=== PATIENT | female | born 1985 | race Caucasian/White ===

== ENCOUNTER → 2016-12-18 | Outpatient (REF) | payer OTHER | LOC: M SFHCLERA 10:32 | PROVIDERS: ATTEND Physician Assistant | DX: J32.9 Chronic sinusitis, unspecified (principal) ==

== ENCOUNTER → 2021-09-30 | Outpatient (CLI) | payer OTHER | LOC: M WHC 09:46 | PROVIDERS: ATTEND Specialist | DX: Z34.82 Encounter for supervision of other normal pregnancy, second trimester (principal) ==

== ENCOUNTER → 2021-11-14 | Outpatient (CLI) | payer OTHER | LOC: M WHC 11:49 | PROVIDERS: ATTEND Obstetrics & Gynecology | DX: Z36.2 Encounter for other antenatal screening follow-up (principal) ==

== ENCOUNTER → 2021-12-03 | Outpatient (CLI) | payer OTHER ==
[2021-12-03 14:12] LABS: HEMATOCRIT 33.7 % (36.0-47.0); HEMOGLOBIN 11.3 g/dl (12.0-15.5); MEAN CORPUSCULAR HEMOGLOBIN 31.1 pg (27.0-33.0); MEAN CORPUSCULAR HGB CONC 33.5 g/dl (32.0-36.5); MEAN CORPUSCULAR VOLUME 92.8 fl (80.0-96.0); PLATELET COUNT, AUTOMATED 260 10^3/uL (150-450); RED BLOOD COUNT 3.63 10^6/uL (4.00-5.40); WHITE BLOOD COUNT 11.7 10^3/uL (4.0-10.0)
[2021-12-03 14:41] LABS: ALBUMIN 2.7 GM/DL (3.2-5.2); ALT/SGPT 13 U/L (12-78); BILIRUBIN,TOTAL 0.2 MG/DL (0.2-1.0); BLOOD UREA NITROGEN 6 MG/DL (7-18); CALCIUM LEVEL 8.8 MG/DL (8.5-10.1); CARBON DIOXIDE LEVEL 24 MEQ/L (21-32); CHLORIDE LEVEL 106 MEQ/L (98-107); CREATININE FOR GFR 0.58 MG/DL (0.55-1.30); CREATININE,RANDOM URINE 59.8 MG/DL; GLOMERULAR FILTRATION RATE > 60.0 (>60); GLUCOSE CHALLENGE TEST 1 HOUR 106 MG/DL (LESS THAN 140); GLUCOSE, FASTING 106 MG/DL (70-100); POTASSIUM SERUM 3.4 MEQ/L (3.5-5.1); SODIUM LEVEL 138 MEQ/L (136-145); TOTAL PROTEIN 6.2 GM/DL (6.4-8.2); TOTAL PROTEIN,RANDOM URINE 12.3 MG/DL (0.0-12.0)
[2021-12-03 15:54] LABS: GC DNA AMPLIFICATION NEGATIVE (NEGATIVE)
== END ==
LOC: M PLALAB 08:37
PROVIDERS: ATTEND Obstetrics & Gynecology
DX: Z36.89 Encounter for other specified antenatal screening (principal); Z3A.24 24 weeks gestation of pregnancy

== ENCOUNTER → 2022-01-23 | Outpatient (REF) | payer OTHER | LOC: M PLALAB 08:19 | PROVIDERS: ATTEND Specialist | DX: Z34.83 Encounter for supervision of other normal pregnancy, third trimester (principal) ==

== ENCOUNTER → 2022-02-05 | Outpatient (CLI) | payer OTHER ==
[~2022-02-05] MED LIST: IRON27TA2 PO; PRENTAB53 PO
== END ==
LOC: M LABSMTC 09:52
PROVIDERS: ATTEND Anesthesiology
DX: Z01.818 Encounter for other preprocedural examination (principal); Z11.52 Encounter for screening for COVID-19

== ENCOUNTER 2022-02-10 07:11 | Inpatient (IN) | payer OTHER ==
[2022-02-10] VITALS (8 sets, daily range): BP systolic 105–137; BP diastolic 55–81
[~2022-02-10] VITALS: Ht 171.4 cm; Wt 91.1 kg
[2022-02-10] MEDS ORDERED: TUMS500C PO (07:48)
[2022-02-10] MEDS ORDERED: LACTATED RINGER'S 1000 ML IV STA (07:59)
[2022-02-10] MEDS ORDERED: BICITRA 30ML SOLN UDC PO ONE (08:00)
[2022-02-10] MEDS ORDERED: ceFAZolin SOD 2 GM in IV 1 EA IV ONE (08:00)
[2022-02-10 08:19] LABS: HEMATOCRIT 35.3 % (36.0-47.0); HEMOGLOBIN 12.5 g/dl (12.0-15.5); MEAN CORPUSCULAR HEMOGLOBIN 31.6 pg (27.0-33.0); MEAN CORPUSCULAR HGB CONC 35.4 g/dl (32.0-36.5); MEAN CORPUSCULAR VOLUME 89.4 fl (80.0-96.0); PLATELET COUNT, AUTOMATED 189 10^3/uL (150-450); RED BLOOD COUNT 3.95 10^6/uL (4.00-5.40); WHITE BLOOD COUNT 8.6 10^3/uL (4.0-10.0)
[2022-02-10] MEDS: LR 1,000 ML IV SCH ×2 (09:08→10:37)
[2022-02-10] MEDS ORDERED: HOME MED LIST COMPLETE! XX SCH (09:15)
[2022-02-10] MEDS ORDERED: PHENYLephrine 500MCG 5ML (100MCG/ML) SYRINGE As Ordered ONE (11:00)
[2022-02-10] MEDS ORDERED: ePHEDrine SULFATE 25 MG/5 ML(5MG/ML) SYRINGE As Ordered ONE (11:00)
[2022-02-10] MEDS ORDERED: ACETAMINOPHEN 1000MG 100ML IV BTL (OFIRMEV) (J0131 PER 10MG) As Ordered ONE (11:24)
[2022-02-10] MEDS ORDERED: MORPHINE PRES-FREE INJ 10 MG/10 ML VIAL As Ordered ONE (11:24)
[2022-02-10] MEDS ORDERED: METOCLOPRAMIDE INJ 10MG/2ML VIAL (J2765 PER 1) As Ordered ONE (11:24)
[2022-02-10] MEDS ORDERED: dexameTHASONE 4 MG/ML 1ML VIAL (J1100 PER 1MG) As Ordered ONE (11:24)
[2022-02-10] MEDS ORDERED: KETOROLAC 60MG 2ML VIAL As Ordered ONE (11:24)
[2022-02-10] MEDS ORDERED: ONDANSETRON 4MG 2ML VIAL As Ordered ONE (11:24)
[2022-02-10] MEDS ORDERED: OXYTOCIN 30 UNITS IN 0.9% NaCl 500ML IV BAG (J2590) As Ordered ONE ×2 (11:24→11:40)
[2022-02-10] MEDS ORDERED: DOCUSATE SODIUM 100MG CAPSULE PO PRN (11:50)
[2022-02-10] MEDS ORDERED: PERCOCET 5MG/325MG TAB PO PRN (11:50)
[2022-02-10] MEDS ORDERED: LR 1,000 ML IV SCH (11:50)
[2022-02-10] MEDS ORDERED: OXYTOCIN DRIP 30 UNITS in IV 1 EA IV SCH (11:50)
[2022-02-10] MEDS ORDERED: ONDANSETRON 4MG 2ML VIAL IV PRN ×2 (11:50→12:15)
[2022-02-10] MEDS ORDERED: RHOGAM 300 MCG (1500 IU) INJ (J2790) IM SCH (11:50)
[2022-02-10] MEDS ORDERED: METOCLOPRAMIDE INJ 10MG/2ML VIAL (J2765 PER 1) IV PRN (12:15)
[2022-02-10] MEDS ORDERED: **NOTE PATIENT COMMENT** MISC XX SCH (12:15)
[2022-02-10] MEDS ORDERED: diphenhydrAMINE 50MG/ML VIAL (J1200) IV PRN (12:15)
[2022-02-10] MEDS ORDERED: NALOXONE INJ 0.4MG/1ML VIAL (J2310 PER 1MG) IV PRN ×2 (12:15)
[2022-02-10] MEDS: SLF 3 ML SYR IV SCH ×2 (13:20→21:00)
[2022-02-10] MEDS: KETOROLAC 30 MG/ML 1ML VIAL IV SCH ×2 (18:16→23:58)
[2022-02-11 02:29] VITALS: BP 109/59
[2022-02-11] MEDS: KETOROLAC 30 MG/ML 1ML VIAL IV SCH (05:42)
[2022-02-11] MEDS: SLF 3 ML SYR IV SCH (05:43)
[2022-02-11 06:07] VITALS: BP 120/62
[2022-02-11 07:15] LABS: HEMATOCRIT 29.8 % (36.0-47.0); MEAN CORPUSCULAR HEMOGLOBIN 30.9 pg (27.0-33.0); MEAN CORPUSCULAR HGB CONC 33.6 g/dl (32.0-36.5); PLATELET COUNT, AUTOMATED 161 10^3/uL (150-450); RED BLOOD COUNT 3.24 10^6/uL (4.00-5.40); WHITE BLOOD COUNT 13.7 10^3/uL (4.0-10.0)
[2022-02-11] MEDS: PRENATAL VITAMINS CHEWABLE TABLET PO SCH (08:17)
[2022-02-11 09:58] VITALS: BP 120/56
[2022-02-11] MEDS: PERCOCET 5MG/325MG TAB PO PRN ×3 (11:40→21:52)
[2022-02-11 14:00] VITALS: BP 109/54
[2022-02-11] MEDS: IBUPROFEN 800 MG TAB PO SCH ×2 (14:15→21:51)
[2022-02-11 18:00] VITALS: BP_SYST 124; BP_SYST 133; BP_SYST 154; BP_DIAS 64; BP_DIAS 77; BP_DIAS 78
[2022-02-11 22:00] VITALS: BP 114/58
[2022-02-11] MEDS: SIMETHICONE 80MG CHEW TAB PO PRN (23:54)
[2022-02-12 02:00] VITALS: BP 130/70
[2022-02-12] MEDS: PERCOCET 5MG/325MG TAB PO PRN ×2 (05:53→11:12)
[2022-02-12] MEDS: IBUPROFEN 800 MG TAB PO SCH (05:53)
[2022-02-12 06:00] VITALS: BP 121/64
[2022-02-12] MEDS ORDERED: MEASLES,MUMPS,RUBELLA VACCINE INJ (MMR-II) (90707) SC.IMMUN ONE (09:00)
[2022-02-12] MEDS: SIMETHICONE 80MG CHEW TAB PO PRN (09:41)
[2022-02-12] MEDS: PRENATAL VITAMINS CHEWABLE TABLET PO SCH (09:41)
[2022-02-12 10:00] VITALS: BP 121/58
[2022-02-12] MEDS ORDERED: COLA100C5 PO (11:11)
[2022-02-12] MEDS ORDERED: ACET-683 PO (11:11)
[2022-02-12] MEDS ORDERED: IBUP-1022 PO (11:11)
[2022-02-12] MEDS ORDERED: OXYC-517 PO (11:11)
== END 2022-02-12 12:45 | disposition home or self-care (01) | DRG 773 ==
LOC: M LDI 07:11 → EDSTATUS 09:30 → M OBS 13:07
PROVIDERS: ADMIT Specialist; ATTEND Specialist
PROC: 10D00Z1 Extraction of Products of Conception, Low, Open Approach (ICD-10-PCS; principal; 2022-02-10 09:30)
DX: O32.1XX0 Maternal care for breech presentation, not applicable or unspecified (principal); Z3A.39 39 weeks gestation of pregnancy; Z37.0 Single live birth